=== PATIENT | female | born 2000 ===

== ENCOUNTER 2021-08-03 12:07 | Emergency (ER) | payer MEDICAID ==
[2021-08-03] MEDS ORDERED: Ondansetron 4 MG Tab.DIS PO ONE (12:32)
--- NOTE | 2021-08-03 12:36 | EDM.PDOC ---
ED HPI GENERAL MEDICAL PROBLEM - General Chief Complaint: Gastrointestinal Problem Stated Complaint: VOMITING\GALLBLADDER PAIN Time Seen by Provider: 08/03/21 12:25 Source of Information: Reports: Patient, RN Notes Reviewed History Limitations: Reports: No Limitations - History of Present Illness INITIAL COMMENTS - FREE TEXT/NARRATIVE: Patient is a 20-year-old female who presents to the ER for evaluation of her nausea and vomiting. 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 States that she has felt somewhat ill this morning, she characterizes it as more nausea so she tried to eat a breakfast sandwich, was doing okay, but then about an hour after that, she vomited this all back up. She tried to drink some water after this, but vomited this back up. She states on her way here she also did drink a smoothie to see if this would stay down, she feels nauseous but has not vomited this back up. Does state that she has a history of a gallstone, but due to her BMI, and status providers at [facility] stated she would have to go elsewhere to have this evaluated. recommended that she follow-up with her [employer] She did get in contact with surgery at this facility but also again because of her they to see if this would be a good idea to have done. Not having any fevers or chills, cough or shortness of breath or any sort of diarrhea. States that she has not really had a good bowel movement in the past few days as well. She states that when she was vomiting, she had some abdominal cramping. She is not had any issues with the such as vaginal bleeding or low abdominal discomfort. She is also not complaining of any sort of right upper quadrant abdominal pain. - Related Data Allergies Allergy/AdvReac Type Severity Reaction Status Date / Time No Known Allergies Allergy Verified 08/03/21 12:24 Home Meds: Home Meds Ondansetron [Zofran ODT] 4 mg PO Q8H PRN #15 tab.dis 08/03/21 [Rx] Past Medical History - Past Health History Medical/Surgical History: Denies Medical/Surgical History Cardiovascular History: Reports: Hypertension, Other (See Below) Other Cardiovascular History: PIH [employer] History: Reports: Hematologic History: Reports: Iron Deficiency - Past Surgical History Musculoskeletal Surgical History: Reports: Other (See Below) Social & Family History - Family History Family Medical History: No Pertinent Family History Cardiac: Reports: High Cholesterol, Hypertension Endocrine/Metabolic: Reports: Diabetes, type II - Caffeine Use Caffeine Use: Reports: None ED ROS GENERAL - Review of Systems Review Of Systems: Comprehensive ROS is negative, except as noted in HPI. ED EXAM, GI/ABD - Physical Exam Exam: See Below Exam Limited By: No Limitations General Appearance: Alert, WD/WN, No Apparent Distress Eyes: Bilateral: Normal Appearance Respiratory/Chest: No Respiratory Distress, Lungs Clear, Normal Breath Sounds, No Accessory Muscle Use, Chest Non-Tender Cardiovascular: Normal Peripheral Pulses, Regular Rate, Rhythm, No Edema GI/Abdominal Exam: Normal Bowel Sounds, Soft, Non-Tender, No Distention, No Mass Extremities: Normal Inspection, Normal Capillary Refill Neurological: Alert, Oriented, Normal Cognition, No Motor/Sensory Deficits Psychiatric: Normal Affect, Normal Mood Skin Exam: Warm, Dry, Intact, Normal Color, No Rash Course - Vital Signs Last Recorded V/S: Last Vital Signs Temp 97.2 F 08/03/21 12:20 Pulse 80 08/03/21 12:20 Resp 16 08/03/21 12:30 BP 141/72 H 08/03/21 12:30 Pulse Ox 98 08/03/21 12:30 - Orders/Labs/Meds Meds: Medications Discontinued Medications Generic Name Dose Route Start Last Admin Trade Name Micheline PRN Reason Stop Dose Admin Ondansetron HCl 4 mg 08/03/21 12:32 08/03/21 12:36 Ondansetron 4 Mg Tab.Dis PO 08/03/21 12:33 4 mg ONETIME ONE Administration - Re-Assessments/Exams Free Text/Narrative Re-Assessment/Exam: 08/03/21 12:36 Patient presents to the ER for evaluation of her nausea and vomiting in . Blood pressure was a little high at the time of triage, but a large BP cuff was put on the patient, and it did come down to 124/72. We will go ahead and repeat a few blood pressures. We will give her 1 dose of oral Zofran to see if this helps make her nausea little better and then try an oral fluid challenge after this. Patient verbalized understanding at this time. 08/03/21 13:16 Patient states she is feeling little bit better, but her mother did go to find a salad for her to eat to see if this would stay down after the medication. She would like to make sure that she can eat. Then we will likely get her discharged home. 08/03/21 13:50 Patient is feeling well at this time, go ahead and get her discharged home with a few tablets of Zofran and have her follow-up with Dr. Gordon for ongoing management. Departure - Departure Time of Disposition: 13:50 Disposition: Home, Self-Care 01 Condition: Good Clinical Impression: Nausea and vomiting during - Discharge Information *PRESCRIPTION DRUG MONITORING PROGRAM REVIEWED*: No *COPY OF PRESCRIPTION DRUG MONITORING REPORT IN PATIENT KENNY: No Prescriptions: Ondansetron [Zofran ODT] 4 mg PO Q8H PRN #15 tab.dis PRN Reason: Nausea Instructions: Nausea and Vomiting, Adult, [id number] Referrals: PCP,None [Primary Care Provider] - Forms: ED Department Discharge Additional Instructions: You were evaluated in the ER today for your nausea and vomiting. You were given 1 dose of oral Zofran in the ER, this seemed to help relieve most of your nausea. You have been given a few tablets of this for outpatient management. Please use 1 tablet dissolvable under your tongue every 8 hours as needed for ongoing nausea management. This medication was electronically sent to the [facility] located near [facility]. Follow-up with your [employer], Dr. Denis for ongoing management regarding possible gallbladder surgery as well during your . Do not hesitate to return to the ER at any time if symptoms change or worsen. Thank you for allowing and choosing us to be involved in your healthcare needs. Sepsis Event Note (ED) - Evaluation Sepsis Screening Result: No Definite Risk - Focused Exam Vital Signs: Vital Signs Temp Pulse Resp BP Pulse Ox 08/03/21 12:30 16 141/72 H 98 08/03/21 12:20 97.2 F 80 18 157/112 H 100
[2021-08-03 14:06] VITALS: BP 147/78; PULSE 72
== END 2021-08-03 14:04 | disposition home or self-care (01) ==
LOC: SUPCPDRO 12:07 → JD.ED 12:07
DX: O21.9 Vomiting of pregnancy, unspecified (principal); I10 Essential (primary) hypertension; Z3A.09 9 weeks gestation of pregnancy
CPT/HCPCS: 99283; A9270